=== PATIENT | male | born 2000 | race Caucasian/White ===

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

== ENCOUNTER 2023-04-13 10:16 | Emergency (ER) | payer BC, OTHER ==
[~2023-04-13] VITALS: Ht 182.9 cm; Wt 79.4 kg
[~2023-04-13 10:16] MED LIST changes: +CYCL10TA16 PO; +IBUP-2070 PO
[2023-04-13] MEDS ORDERED: IBUPROFEN 800 MG TAB PO ONE (15:30)
[2023-04-13] MEDS ORDERED: DEXAMETHASONE SOD PHOSPHATE 4 MG/ML 1ML VIAL IM ONE (15:30)
[2023-04-13] MEDS ORDERED: MORPHINE 4 MG SYG IM ONE (15:30)
[2023-04-13] MEDS ORDERED: ACET-2079 PO (18:11)
[2023-04-13] MEDS ORDERED: PRED20TA3 PO (18:11)
[2023-04-13] MEDS ORDERED: IBUP-2077 PO (18:11)
[2023-04-13 18:18] VITALS: BP 128/82; PULSE 62; RESP 20; O2SAT 99
== END 2023-04-13 18:28 | disposition home or self-care (01) ==
LOC: EDH 10:16
DX: S39.012A Strain of muscle, fascia and tendon of lower back, initial encounter (principal); M62.838 Other muscle spasm; J45.909 Unspecified asthma, uncomplicated; Z79.52 Long term (current) use of systemic steroids; Z88.1 Allergy status to other antibiotic agents; X58.XXXA Exposure to other specified factors, initial encounter; Y93.89 Activity, other specified; Y92.89 Other specified places as the place of occurrence of the external cause; Y99.8 Other external cause status
CPT/HCPCS: 99285; 72131; 96372 ×2; J1100; J2270